=== PATIENT | female | born 1995 | race Caucasian/White ===

== ENCOUNTER 2018-06-30 13:13 | Emergency (ER) | payer OTHER ==
[~2018-06-30] VITALS: Ht 157.5 cm; Wt 71.2 kg
[2018-06-30 13:49] LABS: BASOPHILS # (AUTO) 0.04 x10^3/uL (0-0.1); BASOPHILS % (AUTO) 1 % (0-1); EOSINOPHILS # (AUTO) 0.03 x10^3/uL (0-0.4); EOSINOPHILS % (AUTO) 0 % (1-7); LYMPHOCYTES # (AUTO) 1.66 x10^3/uL (1-3.4); LYMPHOCYTES % (AUTO) 24 % (22-44); MD NO; MEAN CORPUSCULAR HEMOGLOBIN 28.6 pg (27.0-34.8); MEAN CORPUSCULAR HGB CONC 32.7 g/dL (32.4-35.8); MEAN CORPUSCULAR VOLUME 87.5 fL (80-100); MEAN PLATELET VOLUME 9.5 fL (7.4-10.4); MONOCYTES # (AUTO) 0.29 x10^3/uL (0.2-0.8); MONOCYTES % (AUTO) 4 % (2-9); NEUTROPHILS # (AUTO) 4.97 x10^3/uL (1.8-6.8); NEUTROPHILS % (AUTO) 71 % (42-75); PLATELET COUNT 218 x10^3/uL (130-400); RED BLOOD COUNT 4.88 x10^6/uL (3.82-5.3)
[2018-06-30 14:00] LABS: ALBUMIN 4.3 g/dL (3.4-5.0); ANION GAP 6 mmol/L (5-15); CALCIUM 9.1 mg/dL (8.5-10.1); CHLORIDE 114 mmol/L (98-107); CREATININE 0.77 mg/dL (0.55-1.02)
[2018-06-30 14:48] LABS: MICROSCOPIC NOT IND
[2018-06-30 14:50] LABS: CULTURE INDICATED? NO
--- NOTE | 2018-06-30 15:35 | NUR ---
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 VSS. PT REMAINS A&OX4. AMBULATORY BACK TO LOBBY WITH STEADY GAIT WITH SIGNIFICANT OTHER. CONTINUE AWAITING ROOM IN ER.
--- NOTE | 2018-06-30 16:38 | NUR ---
PT TO ROOM FROM LOBBY
[2018-06-30 17:23] VITALS: BP 107/58
--- NOTE | 2018-06-30 17:24 | NUR ---
First contact with pt. Pt states she is 6 weeks , today started having uterine cramping but no bleeding. Pt is A0. Pt sitting in bed, NADN, denies needs.
--- NOTE | 2018-06-30 17:38 | NUR ---
TASK RN: First contact with patient. Discharge instructions discussed with patient including when to return to emergency department, patient verbalizes understanding. Patient ambulates with steady gait to discharge desk in no acute distress.
== END 2018-06-30 18:33 | disposition home or self-care (01) ==
LOC: ED 17:45
DX: O26.891 Other specified pregnancy related conditions, first trimester (principal); R10.30 Lower abdominal pain, unspecified; Z3A.01 Less than 8 weeks gestation of pregnancy
CPT/HCPCS: 36415; 76801; 80048; 81003; 82040; 84702; 85025; 99284